=== PATIENT | female | born 1955 | race Caucasian/White ===

== ENCOUNTER → 2016-07-03 | Outpatient (CLI) | payer MEDICARE, OTHER | LOC: LAB 08:11 | PROVIDERS: ATTEND Nurse Practitioner Family | DX: E11.9 Type 2 diabetes mellitus without complications (principal); E78.2 Mixed hyperlipidemia | CPT/HCPCS: 36415; 80061; 83036 ==

== ENCOUNTER 2016-09-17 09:00 | Outpatient (RCR) | payer MEDICARE, OTHER ==
[~2016-09-17 09:00] MED LIST: ALLO300T2 PO; AML5T; ASPI-860 PO; BISA-65 PO; CALC-250 PO; CALC600T19 PO; DOXA8TAB73 PO; FLUO40CA12 PO; GABA300C PO; ISOS30TA82; LISI1TAB10 PO; LORA10TA7 PO; LOVA20TA2 PO; MELO-249 PO; MULT-593 PO; NFMET1000 PO; TRIA15CR TP; TRIAMCINOLONE
== END 2016-11-18 | disposition home or self-care (01) ==
LOC: DT 09:00
PROVIDERS: ATTEND Family Medicine
DX: E66.01 Morbid (severe) obesity due to excess calories (principal); E11.9 Type 2 diabetes mellitus without complications; Z68.42 Body mass index [BMI] 45.0-49.9, adult
CPT/HCPCS: 97802; G0447

== ENCOUNTER → 2016-09-17 | Outpatient (CLI) | payer MEDICARE, OTHER ==
[2016-09-17 11:13] LABS: BASOPHILS % (AUTO) 1 % (0-2); EOSINOPHILS # (AUTO) 0.2 10^3uL; EOSINOPHILS % (AUTO) 2 % (0-4); MEAN CORPUSCULAR VOLUME 88 FL (80-100); MEAN PLATELET VOLUME 10.2 FL (6.0-9.5); MONOCYTES # (AUTO) 0.9 X10^3; MONOCYTES % (AUTO) 8 % (3-11); NEUTROPHILS # (AUTO) 7.7 X10^3; NEUTROPHILS % (AUTO) 71 % (51-67); PLATELET COUNT 348 10^3uL (150-450); WHITE BLOOD COUNT 10.82 10^3uL (4.0-11.0)
[2016-09-17 11:42] LABS: ALBUMIN 3.9 g/dL (3.4-5.0); ANION GAP 17.3 MEQ/L (3-15); CALCULATED IONIZED CALCIUM 4.5 mg/dL (3.8-4.6); TOTAL PROTEIN 7.1 g/dL (6.4-8.5)
== END ==
LOC: LAB 11:03
PROVIDERS: ATTEND Obstetrics & Gynecology
DX: R87.619 Unspecified abnormal cytological findings in specimens from cervix uteri (principal)
CPT/HCPCS: 36415; 80053; 85025

== ENCOUNTER 2016-09-26 08:12 | Day surgery (SDC) | payer MEDICARE, OTHER ==
[~2016-09-26] VITALS: Ht 172.7 cm; Wt 146.4 kg
[~2016-09-26 08:12] MED LIST changes: +LACTATED RINGERS 1,000 ML IV SCH; +SODIUM CHLORIDE FLUSH 3 ML SYR IV PRN
--- OUTSIDE RECORDS SUMMARY | 2016-09-26 08:16 | XMS REPORT | Continuity of Care Document ---
Author Author [facility] Address Unknown Phone Unavailable Care Team Providers Care Leather Belt Shaper Name Role Phone GREG ZHAO MD PCP [phone] Insurance Providers Payer Name Policy Number Subscriber Name Relationship Medicare A And B [id number] Rosa Kent 18 Self / Same As Patient Other1 [id number] Rosa Kent 18 Self / Same As Patient Advance Directives Directive Response Recorded Date/Time Advanced Directives Yes 06/07/16 1:11pm Type Durable Power of Decontamination Worker 06/07/16 1:11pm Type Living Will 06/07/16 1:11pm Chief Complaint and Reason for Visit Chief Complaint Altered Neurologic Status Reason for Visit [id number] Problems Active Problems Medical Problem Onset Date Status Abdominal pain Unknown Acute Accidental fall ~11/11/2013 Acute Benign positional vertigo Unknown Acute Dyspnea ~10/04/2015 Acute Elbow contusion Unknown Acute Incarcerated hernia 04/21/2014 Acute Incisional hernia 06/02/2013 Resolved N&V (nausea and vomiting) ~04/21/2014 Acute Partial bowel obstruction 04/21/2014 Acute Partial small bowel obstruction 07/24/2014 Acute Ventral hernia 04/21/2014 Acute Medications Current Home Medications Medication Dose Units Route Directions Days/Qty Instructions Start Date Gabapentin 300 Mg 300 Mg ORAL Three Times A Day 05/31/13 Fluoxetine Hcl 40 Mg 40 Mg ORAL Daily 05/31/13 Metformin Hcl 1,000 Mg 1,000 Mg ORAL Daily 05/31/13 Allopurinol 300 Mg 300 Mg ORAL Daily 05/31/13 Lisinopril/Hydrochlorothiazide 1 Each 1 Tab ORAL Daily 05/31/13 Meloxicam 15 Mg 15 Mg ORAL Daily 05/31/13 Lovastatin 20 Mg 20 Mg ORAL Bedtime 07/24/14 Loratadine 10 Mg 10 Mg ORAL Daily as needed for Seasonal Allergies 07/24/14 Aspirin 81 Mg 81 Mg ORAL Daily 07/24/14 Calcium Carbonate 600 Mg 2 Tab ORAL Daily 07/24/14 Multivitamin With Minerals 1 Each 1 Each ORAL Daily 07/24/14 Bisacodyl 5 Mg 5 Mg ORAL Four Times Daily as needed for Constipation 07/24/14 Cholecalciferol (Vitamin D3) 5,000 Unit 2 Tab ORAL Daily 07/24/14 Past Home Medications Medication Directions Ordered Status Isosorbide Mononitrate 30 Mg Tab, 30 Daily 05/31/13 Discontinued Doxazosin Mesylate 8 Mg Tablet, 8 Mg Oral Daily 05/31/13 Discontinued Amlodipine Besylate (Norvasc) 5 Mg Tablet, 1 Daily 05/31/13 Discontinued [Triamicinolon] , 05/31/13 Discontinued Triamcinolone Acetonide 15 Gm Cream..g., 1 Applic Topical As Directed Discontinued Social History Social History Problem Response Recorded Date/Time Onset Date Status Exposure to occupational hazards No 07/24/2014 5:00pm Query Response Start Date Stop Date Smoking Status Unknown, if ever smoked Hospital Discharge Instructions No hospital discharge instructions. Plan of Care Discharge Date 06/07/16 3:24pm Disposition 01 HOME OR SELF-CARE Condition at Discharge Stable Instructions/Education Provided Meclizine Vertigo (a Type of Dizziness) (DC) Prescriptions See Medication Section Referrals GREG ZHAO MD - Additional Instructions/Education You are likely suffering from Benign Positional Vertigo (see below). You may want to stay on meclizine 25 mg every 6 hours for a day or 2 if you continue to have some vertigo. If it is recurrent, you may need additional maneuvers like Kiko or Half-[place] to help treat it. See your doctor next week to discuss further evaluation and treatment. Some of your test results may not be complete prior to your leaving the Emergency Department. The Emergency Department is not authorized to give test results over the phone. Please contact the doctor's office listed in this packet of information for your final results. Follow up with your primary care physician or return to the Emergency Department for worsening or worrisome symptoms. * Emergency Department phone number: [phone], x [phone]* MEDICAL RECORD If you need copies of your X-rays, call [phone]. If you need copies of your medical record, including lab results, a signed authorization for release of records will be required. A telephone call for release of Health Information is not allowed. BILLING Billing can sometimes be confusing and frustrating. To help avoid confusion in the future, please take a moment to acquaint yourself with the billing parties for services. [employer] Emergency Room Services [facility] Physician Services [facility] X-rays [facility] Patients will receive bills for services from the appropriate provider. If you have any questions about your [facility] bill, our staff will be happy to assist you. Please call [phone], and ask for the billing department. THANK YOU for choosing [facility] as your emergency care provider! Care Plan and Goals ~~Discharge Care Plan~~ Problem: Nausea, vomiting or diarrhea Goal: Decrease in nausea, vomiting or diarrhea Instructions: Encourage fluids approximately 6-8 glasses of water or noncarbonated fluids. Take medication(s) as directed. Follow home discharge instructions. Follow up with primary care physicians or real estate broker associate as directed. Functional Status No functional status results. Allergies, Adverse Reactions, Alerts Allergen Type Severity Reaction Status Last Updated Codeine Allergy Mild chest pain Active 10/04/15 Immunizations Name Given Type Status Date Pneumonia Vaccine Received if Current 09/21/13 Historical Historical Date Influenza Vaccine Received if Current 04/23/14 Historical Historical Vital Signs Acute Vital Signs Vital Response Date/Time Temperature (Fahrenheit) 97.0 06/07/2016 3:24pm Pulse 89 bpm 06/07/2016 3:24pm Respirations 22 06/07/2016 3:24pm Height 5 ft 8 in Weight 325 lb Body Mass Index 49.0 kg/m^2 Results Pending Laboratory Results Test Name Collection Date/Time Procedures Procedure Status Date Provider(s) METABOLIC PANEL TOTAL CA Completed 05/22/16 METABOLIC PANEL TOTAL CA Completed 05/29/16 Encounters Encounter Location Arrival/Admit Date Discharge/Depart Date Attending Provider Departed Emergency Room [facility] 06/07/16 1:02pm 06/07/16 3:24pm XAVIER MADRIGAL DO Registered Clinic [facility] 06/07/16 12:55pm XAVIER MADRIGAL DO Registered Referred [facility] 05/29/16 10:29am LETI OLGUIN APRN Registered Referred [facility] 05/22/16 11:31am LETI OLGUIN APRN Registered Clinic [facility] 05/17/16 9:17am UNKNOWN Recent Diagnosis
[2016-09-26 08:31] VITALS: BP 142/79
[2016-09-26] MEDS ORDERED: ALFENTANIL 1,000 MCG/2 ML AMP IV ONE (08:57)
[2016-09-26] MEDS ORDERED: SUCCINYLCHOLINE 20 MG/ML 10 ML VIAL ONE (08:57)
[2016-09-26] MEDS ORDERED: LIDOCAINE PF 1% (XYLOCAINE) 30 ML VIAL INJ ONE (08:57)
[2016-09-26] MEDS ORDERED: PROPOFOL 20 ML IV ONE (08:57)
[2016-09-26 09:17] LABS: ANION GAP 15.3 MEQ/L (3-15)
[2016-09-26] MEDS ORDERED: SILVER NITRATE APPLICATOR 1 EA TOP ONE (09:56)
--- NOTE | 2016-09-26 10:51 | Operative Report (E) ---
Operative Report (E) 09/26/16 10:49 Pre-Operative Diagnosis: postmenopausal bleeding atypical glandular cells on pap - favor endocervix Post-Operative Diagnosis: Same Procedure: colposcopy hysteroscopy dilatation and curettage polypectomy Surgeon: sulma Exhibition Carver: none Anesthesia: GETA EBL: 5cc Findings: normal cervix and upper vagina on colposcopy. normal endocervix. Large endometrial polyp, 2x3cm. Remainder of endometrium normal. ANAMARIA PRECIADO MD Sep 26, 2016 10:51
--- NOTE | 2016-09-26 10:54 | Discharge Instructions (E) ---
Discharge Instructions Instructions Nothing per vagina 1 week. No other restrictions at home. Call with severe cramping, bleeding, or fevers. Doctor's Appointment [address] Preciado Discharge Diet: Regular ANAMARIA PRECIADO MD Sep 26, 2016 10:54
[2016-09-26] MEDS ORDERED: HYDROcodone/APAP 5 MG/325 MG (NORCO) TAB PO PRN (10:55)
[2016-09-26 11:10] VITALS: BP 124/59
[2016-09-26 11:28] VITALS: BP 141/76
[2016-09-26 11:52] VITALS: BP 132/76
[2016-09-26 12:12] VITALS: BP 154/74
--- NOTE | 2016-09-26 13:47 | OPERATIVE REPORT ---
DATE OF OPERATION: 09/26/2016 PRE-OPERATIVE DIAGNOSIS: 1. Post-menopausal bleeding. 2. Atypical glandular cell pap - favor endocervix. POST-OPERATIVE DIAGNOSIS: 1. Post-menopausal bleeding. 2. Atypical glandular cell pap - favor endocervix. OPERATIVE PROCEDURE: 1. Colposcopy. 2. Hysteroscopy. 3. Polypectomy. 4. Dilatation and curettage of endometrium. SURGEON: Slick Knowles M.D. PRINTING PLATE CLERK: None. ANESTHESIA: General endotracheal. COMPLICATIONS: None. ESTIMATED BLOOD LOSS: 5 mL. SPECIMEN; 1. Endometrial polyp. 2. Endometrial curettings. FINDINGS: Intraoperatively the patient was noted to have a normal vaginal epithelium. The cervix was small and normal on colposcopy with visualization of a very small transitional zone and no __ epithelium. Vaginal colposcopy of the fornices revealed normal epithelium as well. Hysteroscopy revealed a normal endocervix. The endometrium appeared normal except for a large 3 x 2 cm endometrial polyp originating from the fundus of the uterus. This was removed and the remainder of the endometrial cavity was normal on hysteroscopy. DESCRIPTION OF PROCEDURE: After confirming validity of the informed consent the patient was transported to the operating suite where she was placed in the dorsal lithotomy position after general anesthesia was administered without event. The patient was sterilely prepped and draped in the usual fashion and her bladder was emptied with a straight catheter. Using a Russell retractor and single tooth tenaculum, the entire cervix was visualized and __ vinegar was applied to the cervix. Colposcopy was carried out across the entire cervix and upper vagina with the findings as noted above. The cervix was dilated slightly and the hysteroscope was primed and passed into the endometrial cavity and endocervix with the findings as noted above. The hysteroscope was removed and the cervix was dilated further with Hegar dilators. The endometrial polyp was grasped with a stone polyp forceps and removed intact. Hysteroscopy revealed a normal uterine cavity after removal. Endometrial curettage was then carried out with a small amount of tissue sent for pathology. The cervix was release and found to be thoroughly hemostatic. All needles, sponge, and instrument counts were correct x 2. The patient tolerated the procedure well and was transferred to PACU in good condition.
[2016-09-26 14:06] VITALS: BP 156/88
== END 2016-09-26 14:08 | disposition home or self-care (01) ==
LOC: ASC 08:12
PROVIDERS: ATTEND Obstetrics & Gynecology
DX: N84.0 Polyp of corpus uteri (principal); N95.0 Postmenopausal bleeding; G47.30 Sleep apnea, unspecified; K21.9 Gastro-esophageal reflux disease without esophagitis; M10.9 Gout, unspecified; I11.0 Hypertensive heart disease with heart failure; I50.9 Heart failure, unspecified; E55.9 Vitamin D deficiency, unspecified; F32.9 Major depressive disorder, single episode, unspecified; M17.0 Bilateral primary osteoarthritis of knee; E78.5 Hyperlipidemia, unspecified; E66.01 Morbid (severe) obesity due to excess calories; I25.10 Atherosclerotic heart disease of native coronary artery without angina pectoris; E11.9 Type 2 diabetes mellitus without complications; Z79.899 Other long term (current) drug therapy; Z79.84 Long term (current) use of oral hypoglycemic drugs
CPT/HCPCS: 36415; 57420; 58558; 80048; 88305; A9270; J0330; J2001; J7120

== ENCOUNTER → 2016-10-01 | Outpatient (REF) | payer MEDICARE, OTHER ==
[~2016-10-01] MED LIST changes: -LACTATED RINGERS 1,000 ML IV SCH; -SODIUM CHLORIDE FLUSH 3 ML SYR IV PRN
== END ==
LOC: LAB 10:25
PROVIDERS: ATTEND Family Medicine
DX: E78.2 Mixed hyperlipidemia (principal); E11.9 Type 2 diabetes mellitus without complications
CPT/HCPCS: 80061; 83036